=== PATIENT | male | born 1970 | race American Indian/Alaskan Native ===

== ENCOUNTER 2017-12-13 13:49 | Emergency (ER) | payer OTHER, MEDICAID ==
[2017-12-13 14:23] VITALS: BP 152/101
[2017-12-13] MEDS ORDERED: FIORICET PO ONE (18:35)
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
[2017-12-13 18:49] LABS: Basophils % (Auto) 0.2 % (0.0-1.8); Eosinophils # (Auto) 0.2 K/mm3 (0.0-0.4); Eosinophils % (Auto) 3.9 % (0.0-4.3); Hematocrit 38.4 % (35.5-45.6); Hemoglobin 12.1 gm/dl (11.8-15.2); Lymphocytes # (Auto) 1.8 K/mm3 (1.2-5.4); Lymphocytes % (Auto) 29.7 % (13.4-35.0); Mean Corpuscular HGB Conc 31 % (32-34); Mean Corpuscular Volume 81 fl (84-94); Monocytes # (Auto) 0.6 K/mm3 (0.0-0.8); Monocytes % (Auto) 9.1 % (0.0-7.3); Platelet Count 171 K/mm3 (140-440); Red Blood Count 4.73 M/mm3 (3.65-5.03); Red Cell Distribution Width 16.8 % (13.2-15.2)
[2017-12-13 18:50] LABS: Mean Corpuscular Hemoglobin 26 pg (28-32)
[2017-12-13 19:07] LABS: Albumin 3.3 g/dL (3.9-5); Calcium 8.1 mg/dL (8.4-10.2)
--- NOTE | 2017-12-13 19:16 | Cat Scan Report ---
FINAL REPORT PROCEDURE: CT head without contrast. TECHNIQUE: Computerized tomography of the head was performed without contrast material. HISTORY: Headache. COMPARISON: No prior studies are available for comparison. FINDINGS: The ventricles are normal in size. The javier matter and white matter appear normal. There are no mass lesions. There is no intracranial hemorrhage. There are no signs of acute infarction. The calvarium appears intact. The mastoid air cells and visualized paranasal sinuses are clear. IMPRESSION: Normal study.
== END 2017-12-13 20:30 | disposition home or self-care (01) ==
LOC: ED 13:49
DX: F07.81 Postconcussional syndrome (principal); I11.0 Hypertensive heart disease with heart failure; E11.9 Type 2 diabetes mellitus without complications; Z79.82 Long term (current) use of aspirin
CPT/HCPCS: 36415; 70450; 80053; 85025; 99284

== ENCOUNTER 2018-02-05 16:12 | Inpatient (IN) | payer MEDICAID, OTHER ==
[2018-02-05] MEDS ORDERED: ASPIRIN PO ONE (16:46)
[2018-02-05 17:27] LABS: Basophils # (Auto) 0.1 K/mm3 (0.0-0.1); Basophils % (Auto) 1.3 % (0.0-1.8); Eosinophils # (Auto) 0.2 K/mm3 (0.0-0.4); Eosinophils % (Auto) 2.8 % (0.0-4.3); Hemoglobin 12.5 gm/dl (11.8-15.2); Lymphocytes # (Auto) 1.6 K/mm3 (1.2-5.4); Mean Corpuscular HGB Conc 31 % (32-34); Mean Corpuscular Hemoglobin 26 pg (28-32); Mean Corpuscular Volume 83 fl (84-94); Monocytes # (Auto) 0.5 K/mm3 (0.0-0.8); Monocytes % (Auto) 8.2 % (0.0-7.3); Platelet Count 192 K/mm3 (140-440); Red Cell Distribution Width 16.3 % (13.2-15.2)
[2018-02-05 17:47] LABS: Albumin 3.5 g/dL (3.9-5); Calcium 8.8 mg/dL (8.4-10.2)
[2018-02-05 18:03] LABS: Chol/HDL Ratio 2.62 %
--- NOTE | 2018-02-05 18:25 | XRay Report ---
FINAL REPORT EXAM: XR CHEST ROUTINE 2V HISTORY: Chest Pain TECHNIQUE: 2 view examination of the chest PRIORS: None FINDINGS: Limited examination due to prominent soft tissue attenuation. There is no visible pulmonary consolidation, pleural effusion, or pneumothorax. Cardiac silhouette size is normal without vascular congestion. No visible acute displaced fracture in the regional skeleton. IMPRESSION: No evidence of acute cardiopulmonary disease
[2018-02-05] MEDS ORDERED: MORPHINE IV ONE (18:35)
[2018-02-05] MEDS ORDERED: ZOFRAN IV ONE (18:35)
[2018-02-05] MEDS ORDERED: PLAVIX PO ONE (18:36)
--- NOTE | 2018-02-05 18:43 | Emergency Department Report ---
HPI - General Chief Complaint: Chest Pain Time Seen by Provider: 02/05/18 18:21 - HPI HPI: Room 2 The patient is a 47-year-old male comes in with a chief complaint of chest pain shortness of breath. He states his symptoms began "a couple of hours" ago with substernal chest pain described as sharp in nature. The patient states his pain is associated shortness of breath, nausea/vomiting and diaphoresis. The patient states his pain is been intermittent. The patient states she had a syncopal episode after feeling dizzy and states she was unconscious for approximately 10-15 minutes. The patient currently gets this chest pain score of 8.5/10. The patient states he believes he had a stress test approximately 2 years ago but cannot recall the left sciatic cardiac catheterization or its findings Location: Chest Duration: 1.5 weeks Quality: Sharp Severity: 8.5/10 Modifying factors: [see above] Context: [see above] Mode of transportation: [not driving] ED Past Medical Hx - Past Medical History Previous Medical History?: Yes Hx Hypertension: Yes Hx Heart Attack/AMI: Yes Hx Congestive Heart Failure: Yes Hx Diabetes: Yes Hx Headaches / Migraines: Yes Additional medical history: DM, HTN, Heartache 2016 - Surgical History Past Surgical History?: No Additional Surgical History: foot repair, right BKA - Family History Family history: no significant - Social History Smoking Status: Former Smoker (none for over 10 years) Substance Use Type: None (denies illicit drug use) - Medications Home Medications: Home Medications Medication Instructions Recorded Confirmed Last Taken Type Bumetanide [Bumex 1 mg tab] 1 mg PO BID 01/31/16 03/19/16 Unknown History Digoxin [Lanoxin] 125 mcg PO DAILY 01/31/16 03/19/16 Unknown History Glucophage 500 mg PO DAILY 01/31/16 03/19/16 Unknown History Lisinopril 20 mg PO DAILY 01/31/16 03/19/16 Unknown History Spironolactone 25 mg PO BID 01/31/16 03/19/16 Unknown History Aspirin EC [Aspirin Enteric Coated 81 mg PO QDAY #30 tablet. 02/04/16 Unknown Rx TAB] AtorvaSTATin [Lipitor] 40 mg PO QHS #30 tablet 02/04/16 03/19/16 Unknown Rx Carvedilol [Coreg] 25 mg PO BID #60 tablet 02/04/16 03/19/16 Unknown Rx Acetaminophen/Codeine [Tylenol 1 tab PO Q6H PRN #10 tab 12/13/17 Unknown Rx /Codeine # 3 tab] Butalb/Acetamin/Caff 50-325-40 1 tab PO Q8HR PRN #20 tablet 12/13/17 Unknown Rx [Fioricet] Ondansetron [Zofran TAB] 8 mg PO Q8HR PRN #24 tablet 12/13/17 Unknown Rx ED Review of Systems ROS: Stated complaint: CHEST PAIN Other details as noted in HPI Constitutional: diaphoresis Respiratory: shortness of breath Cardiovascular: chest pain Gastrointestinal: nausea, vomiting Physical Exam - Physical Exam Vital Signs: Vital Signs 02/05/18 16:42 Temperature 98.2 F Pulse Rate 78 Respiratory 18 Rate Blood Pressure 167/110 Physical Exam: GENERAL: The patient is well-developed well-nourished male lying on stretcher not appearing to be in acute distress. [] HEENT: Normocephalic. Atraumatic. Extraocular motions are intact. Patient has moist mucous membranes. NECK: Supple. Trachea midline CHEST/LUNGS: Clear to auscultation. There is no respiratory distress noted. HEART/CARDIOVASCULAR: Regular. There is no tachycardia. There is no gallop rub or murmur. ABDOMEN: Abdomen is soft, nontender. Patient has normal bowel sounds. There is no abdominal distention. SKIN: There is no rash. There is no edema. There is no diaphoresis. NEURO: The patient is awake, alert, and oriented. The patient is cooperative. The patient has normal speech MUSCULOSKELETAL: There is no evidence of acute injury. ED Course Vital Signs 02/05/18 16:42 Temperature 98.2 F Pulse Rate 78 Respiratory 18 Rate Blood Pressure 167/110 ED Medical Decision Making - Lab Data Result diagrams: 02/05/18 17:11 02/05/18 17:11 Laboratory Tests 02/05/18 02/05/18 02/05/18 16:45 17:11 17:11 WBC 5.8 RBC 4.80 Hgb 12.5 Hct 40.0 MCV 83 L MCH 26 L MCHC 31 L RDW 16.3 H Plt Count 192 Lymph % (Auto) 27.0 Sebastian % (Auto) 8.2 H Eos % (Auto) 2.8 Baso % (Auto) 1.3 Lymph # 1.6 Sebastian # 0.5 Eos # 0.2 Baso # 0.1 Seg Neutrophils % 60.7 Seg Neutrophils # 3.5 D-Dimer 258.93 H Sodium Potassium Chloride Carbon Dioxide Anion Gap BUN Creatinine Estimated GFR BUN/Creatinine Ratio Glucose POC Glucose 112 H Calcium Total Bilirubin AST ALT Alkaline Phosphatase Troponin T Total Protein Albumin Albumin/Globulin Ratio Triglycerides Cholesterol LDL Cholesterol Direct HDL Cholesterol Cholesterol/HDL Ratio 02/05/18 17:11 WBC RBC Hgb Hct MCV MCH MCHC RDW Plt Count Lymph % (Auto) Sebastian % (Auto) Eos % (Auto) Baso % (Auto) Lymph # Sebastian # Eos # Baso # Seg Neutrophils % Seg Neutrophils # D-Dimer Sodium 140 Potassium 4.9 Chloride 102.6 Carbon Dioxide 23 Anion Gap 19 BUN 27 H Creatinine 2.4 H Estimated GFR 35 BUN/Creatinine Ratio 11 Glucose 111 H POC Glucose Calcium 8.8 Total Bilirubin 0.40 AST 14 ALT 8 Alkaline Phosphatase 107 Troponin T 0.290 H* Total Protein 6.8 Albumin 3.5 L Albumin/Globulin Ratio 1.1 Triglycerides 102 Cholesterol 181 LDL Cholesterol Direct 109 HDL Cholesterol 69 H Cholesterol/HDL Ratio 2.62 - EKG Data -: EKG Interpreted by Me EKG shows normal: sinus rhythm Rate: normal - EKG Data When compared to previous EKG there are: no significant change Interpretation: nonspecific ST-T wave claudia (T-wave inversion in lead aVL) - Radiology Data Radiology results: report reviewed (chest x-ray, VQ scan), image reviewed ( chest x-ray, VQ scan) interpreted by me: Chest x-ray- no focal infiltrates, no pneumothorax [address] [address] Nuclear Medicine Report Signed Patient: JOSE M YUNG MR#: [id number] : 1970 Acct:[id number] Age/Sex: 47 / M ADM Date: 02/05/18 Loc: ED Attending Dr: Ordering Physician: CHELE SHUKLA MD Date of Service: 02/05/18 Procedure(s): NM lung scan perf/vent Accession Number(s): [id number] cc: CHELE SHUKLA MD FINAL REPORT PROCEDURE: Nuclear medicine ventilation and perfusion lung scan. TECHNIQUE: Ventilation imaging was done in the posterior projection using 15 millicuries of xenon 133 gas. Perfusion imaging was done in multiple projections using 5 millicuries of technetium 99 M maa. HISTORY: Chest pain, shortness of breath, prior history of deep venous thrombosis and pulmonary embolism. COMPARISON: Chest 02/05/2018. FINDINGS: There is symmetrical homogeneous ventilation bilaterally. There are no ventilation defects. There is no trapping of xenon gas during the washout phase of the study. The perfusion images are also symmetrical and homogeneous. The lung scan is normal and carries an extremely low probability of pulmonary embolism. IMPRESSION: Normal lung scan. Transcribed By: [facility] Dictated By: KIRT JIMÉNEZ MD Electronically Authenticated By: KIRT JIMÉNEZ MD Signed Date/Time: 02/05 DD/ 33 TD/TT: 02/05/182033 - Medical Decision Making Heart score = 4 History Slightly suspicious= 0 Moderately suspicious= +1 Highly suspicious= +2 EKG Normal= 0 Nonspecific repolarization disturbance= +[address] depression= +2 Risk factors None= 0 1-2= +1 =/>3 = +2 Initial troponin Normal = 0 1-3 times normal= +1 > 3 times normal equals +2 - Differential Diagnosis ACS, PE, pericarditis, GERD Critical care attestation.: If time is entered above; I have spent that time in minutes in the direct care of this critically ill patient, excluding procedure time. ED Disposition Clinical Impression: Chest pain, Syncope Disposition: OP ADMIT IP TO THIS HOSP Is pt being admited?: Yes Does the pt Need Aspirin: No (renal insufficiency. Will give Plavix) Condition: Fair Instructions: Chest Pain (ED), Syncope (ED) Referrals: PRIMARY CARE, [Primary Care Provider] - 3-5 Days Time of Disposition: 22:03 (hospitalist notified (Dr Christian))
[2018-02-05] MEDS ORDERED: NITRO-BID 2% TP ONE (19:12)
--- NOTE | 2018-02-05 20:40 | Nuclear Medicine Report ---
FINAL REPORT PROCEDURE: Nuclear medicine ventilation and perfusion lung scan. TECHNIQUE: Ventilation imaging was done in the posterior projection using 15 millicuries of xenon 133 gas. Perfusion imaging was done in multiple projections using 5 millicuries of technetium 99 M maa. HISTORY: Chest pain, shortness of breath, prior history of deep venous thrombosis and pulmonary embolism. COMPARISON: Chest 02/05/2018. FINDINGS: There is symmetrical homogeneous ventilation bilaterally. There are no ventilation defects. There is no trapping of xenon gas during the washout phase of the study. The perfusion images are also symmetrical and homogeneous. The lung scan is normal and carries an extremely low probability of pulmonary embolism. IMPRESSION: Normal lung scan.
--- NOTE | 2018-02-05 23:42 | History and Physical Report ---
History of Present Illness Date of examination: 02/05/18 Date of admission: 02/05/18 22:03 Chief complaint: Chief complaint: Left-sided chest pain for 1 day History of present illness: BRANDT: 47-year-old -Tongan male with history of CHF hypertension and type 2 diabetes comes in for chest pain which is left-sided for last 1 day. Intermittent in nature. Retrosternal and sharp and about 8 on scale of 1-10. No diaphoresis no palpitations or shortness of breath. Patient has exertional dyspnea. Patient has ejection fraction of 25%. Patient follows with [facility] but has been noncompliant with follow-ups. Follows with his primary care regular basis. No orthopnea. No recent travel. Past Medical History Previous Medical History?: Yes Hx Hypertension: Yes Hx Heart Attack/AMI: Yes Hx Congestive Heart Failure: Yes Hx Diabetes: Yes Hx Headaches / Migraines: Yes Additional medical history: DM, HTN, Heartache 2016 - Surgical History Past Surgical History?: No Additional Surgical History: foot repair, right BKA - Family History Family history: no significant - Social History Smoking Status: Former Smoker (none for over 10 years) Substance Use Type: None (denies illicit drug use) - Medications Home Medications: Home Medications Medication Instructions Recorded Confirmed Last Taken Type Bumetanide [Bumex 1 mg tab] 1 mg PO BID 01/31/16 03/19/16 Unknown History Digoxin [Lanoxin] 125 mcg PO DAILY 01/31/16 03/19/16 Unknown History Glucophage 500 mg PO DAILY 01/31/16 03/19/16 Unknown History Lisinopril 20 mg PO DAILY 01/31/16 03/19/16 Unknown History Spironolactone 25 mg PO BID 01/31/16 03/19/16 Unknown History Aspirin EC [Aspirin Enteric Coated 81 mg PO QDAY #30 tablet. 02/04/16 Unknown Rx TAB] AtorvaSTATin [Lipitor] 40 mg PO QHS #30 tablet 02/04/16 03/19/16 Unknown Rx Carvedilol [Coreg] 25 mg PO BID #60 tablet 02/04/16 03/19/16 Unknown Rx Acetaminophen/Codeine [Tylenol 1 tab PO Q6H PRN #10 tab 12/13/17 Unknown Rx /Codeine # 3 tab] Butalb/Acetamin/Caff 50-325-40 1 tab PO Q8HR PRN #20 tablet 12/13/17 Unknown Rx [Fioricet] Ondansetron [Zofran TAB] 8 mg PO Q8HR PRN #24 tablet 12/13/17 Unknown Rx Review of Systems ROS: Stated complaint: CHEST PAIN Other details as noted in HPI Constitutional: diaphoresis Respiratory: shortness of breath Cardiovascular: chest pain Gastrointestinal: nausea, vomiting 14 point review of systems done and otherwise negative. Medications and Allergies Allergies Allergy/AdvReac Type Severity Reaction Status Date / Time tramadol Allergy Itching Verified 12/13/17 14:21 Home Medications Medication Instructions Recorded Confirmed Last Taken Type Bumetanide [Bumex 1 mg tab] 1 mg PO BID 01/31/16 03/19/16 Unknown History Digoxin [Lanoxin] 125 mcg PO DAILY 01/31/16 03/19/16 Unknown History Glucophage 500 mg PO DAILY 01/31/16 03/19/16 Unknown History Lisinopril 20 mg PO DAILY 01/31/16 03/19/16 Unknown History Spironolactone 25 mg PO BID 01/31/16 03/19/16 Unknown History Aspirin EC [Aspirin Enteric Coated 81 mg PO QDAY #30 tablet. 02/04/16 Unknown Rx TAB] AtorvaSTATin [Lipitor] 40 mg PO QHS #30 tablet 02/04/16 03/19/16 Unknown Rx Carvedilol [Coreg] 25 mg PO BID #60 tablet 02/04/16 03/19/16 Unknown Rx Acetaminophen/Codeine [Tylenol 1 tab PO Q6H PRN #10 tab 12/13/17 Unknown Rx /Codeine # 3 tab] Butalb/Acetamin/Caff 50-325-40 1 tab PO Q8HR PRN #20 tablet 12/13/17 Unknown Rx [Fioricet] Ondansetron [Zofran TAB] 8 mg PO Q8HR PRN #24 tablet 12/13/17 Unknown Rx Exam - Physical Exam Narrative exam: Lying in bed comfortably - Constitutional Vitals: Temp Pulse Resp BP Pulse Ox 97.1 F L 74 14 148/101 97 02/05/18 20:12 02/05/18 23:10 02/05/18 23:10 02/05/18 23:10 02/05/18 23:10 General appearance: Present: no acute distress, well-nourished - EENT Eyes: Present: PERRL ENT: hearing intact, clear oral mucosa - Neck Neck: Present: supple, normal ROM - Respiratory Respiratory effort: normal Respiratory: bilateral: CTA - Cardiovascular Heart rate: 80 Rhythm: regular Heart Sounds: Present: S1 & S2. Absent: rub, click - Extremities Extremities: no ischemia, pulses intact, pulses symmetrical, No edema Peripheral Pulses: within normal limits - Abdominal General gastrointestinal: Present: soft, non-tender, non-distended, normal bowel sounds Male genitourinary: Present: normal - Rectal Rectal Exam: deferred - Integumentary Integumentary: Present: clear, warm, dry - Musculoskeletal Musculoskeletal: gait normal, strength equal bilaterally - Psychiatric Psychiatric: appropriate mood/affect, intact judgment & insight - Neurologic Neurologic: CNII-XII intact, moves all extremities - Allied Health Allied health notes reviewed: nursing, case management Results - Labs CBC & Chem 7: 02/05/18 17:11 02/05/18 17:11 Labs: Laboratory Last Values WBC 5.8 K/mm3 (4.5-11.0) 02/05/18 17:11 RBC 4.80 M/mm3 (3.65-5.03) 02/05/18 17:11 Hgb 12.5 gm/dl (11.8-15.2) 02/05/18 17:11 Hct 40.0 % (35.5-45.6) 02/05/18 17:11 MCV 83 fl (84-94) L 02/05/18 17:11 MCH 26 pg (28-32) L 02/05/18 17:11 MCHC 31 % (32-34) L 02/05/18 17:11 RDW 16.3 % (13.2-15.2) H 02/05/18 17:11 Plt Count 192 K/mm3 (140-440) 02/05/18 17:11 Lymph % (Auto) 27.0 % (13.4-35.0) 02/05/18 17:11 [place] % (Auto) 8.2 % (0.0-7.3) H 02/05/18 17:11 Eos % (Auto) 2.8 % (0.0-4.3) 02/05/18 17:11 Baso % (Auto) 1.3 % (0.0-1.8) 02/05/18 17:11 Lymph # 1.6 K/mm3 (1.2-5.4) 02/05/18 17:11 [place] # 0.5 K/mm3 (0.0-0.8) 02/05/18 17:11 Eos # 0.2 K/mm3 (0.0-0.4) 02/05/18 17:11 Baso # 0.1 K/mm3 (0.0-0.1) 02/05/18 17:11 Seg Neutrophils % 60.7 % (40.0-70.0) 02/05/18 17:11 Seg Neutrophils # 3.5 K/mm3 (1.8-7.7) 02/05/18 17:11 D-Dimer 258.93 ng/mlDDU (0-234) H 02/05/18 17:11 Sodium 140 mmol/L (137-145) 02/05/18 17:11 Potassium 4.9 mmol/L (3.6-5.0) 02/05/18 17:11 Chloride 102.6 mmol/L (98-107) 02/05/18 17:11 Carbon Dioxide 23 mmol/L (22-30) 02/05/18 17:11 Anion Gap 19 mmol/L 02/05/18 17:11 BUN 27 mg/dL (9-20) H 02/05/18 17:11 Creatinine 2.4 mg/dL (0.8-1.5) H 02/05/18 17:11 Estimated GFR 35 ml/min 02/05/18 17:11 BUN/Creatinine Ratio 11 % 02/05/18 17:11 Glucose 111 mg/dL (75-100) H 02/05/18 17:11 POC Glucose 112 (70-105) H 02/05/18 16:45 Calcium 8.8 mg/dL (8.4-10.2) 02/05/18 17:11 Total Bilirubin 0.40 mg/dL (0.1-1.2) 02/05/18 17:11 AST 14 units/L (5-40) 02/05/18 17:11 ALT 8 units/L (7-56) 02/05/18 17:11 Alkaline Phosphatase 107 units/L (35-129) 02/05/18 17:11 Troponin T 0.290 ng/mL (0.00-0.029) H* 02/05/18 17:11 Total Protein 6.8 g/dL (6.3-8.2) 02/05/18 17:11 Albumin 3.5 g/dL (3.9-5) L 02/05/18 17:11 Albumin/Globulin Ratio 1.1 % 02/05/18 17:11 Triglycerides 102 mg/dL (2-149) 02/05/18 17:11 Cholesterol 181 mg/dL (50-199) 02/05/18 17:11 LDL Cholesterol Direct 109 mg/dL (50-130) 02/05/18 17:11 HDL Cholesterol 69 mg/dL (40-59) H 02/05/18 17:11 Cholesterol/HDL Ratio 2.62 % 02/05/18 17:11 Digoxin 0.3 ng/mL (0.9-2.0) L 02/05/18 18:54 Short CBC 02/05/18 Range/Units 17:11 WBC 5.8 (4.5-11.0) K/mm3 Hgb 12.5 (11.8-15.2) gm/dl Hct 40.0 (35.5-45.6) % Plt Count 192 (140-440) K/mm3 BMP 02/05/18 17:11 Sodium 140 Potassium 4.9 Chloride 102.6 Carbon Dioxide 23 BUN 27 H Creatinine 2.4 H Glucose 111 H Calcium 8.8 Cardiac Enzymes 02/05/18 Range/Units 17:11 Troponin T 0.290 H* (0.00-0.029) ng/mL Liver Function 02/05/18 Range/Units 17:11 Total Bilirubin 0.40 (0.1-1.2) mg/dL AST 14 (5-40) units/L ALT 8 (7-56) units/L Alkaline Phosphatase 107 (35-129) units/L Albumin 3.5 L (3.9-5) g/dL - Imaging and Cardiology EKG: report reviewed (sinus rhythm 83/m LVH criteria present T-wave inversions in aVR and aVL) Assessment and Plan Advance Directives: Yes (full code) VTE prophylaxis?: Chemical Plan of care discussed with patient/family: Yes - Patient Problems (1) Chest pain Current Visit: Yes Status: Acute Qualifiers: Chest pain type: unspecified Qualified Code(s): R07.9 - Chest pain, unspecified Plan to address problem: Chest pain rule out IA Serial cardiac enzymes Lexiscan the morning Cardiology consult (2) NEGAR (acute kidney injury) Current Visit: Yes Status: Acute Plan to address problem: NEGAR on CKD Nephrology consult requested Because of the CHF no IV fluids were initiated (3) CHF (congestive heart failure) Current Visit: Yes Status: Chronic Qualifiers: Heart failure type: combined systolic and diastolic Plan to address problem: Continue Bumex 1 mg twice a day (4) T2DM (type 2 diabetes mellitus) Current Visit: Yes Status: Chronic Qualifiers: Diabetes mellitus terminal worker insulin use: without terminal worker use Chronic kidney disease stage: stage 3 (moderate) Plan to address problem: Continue oral hypoglycemics hold Glucophage because of her elevated creatinine (5) Hypertension Current Visit: Yes Status: Chronic Qualifiers: Hypertension type: essential hypertension Qualified Code(s): I10 - Essential (primary) hypertension Plan to address problem: We will hold lisinopril because of elevated creatinine and add hydralazine 25 every 8 hours. Continue Coreg (6) Hyperlipidemia Current Visit: Yes Status: Chronic Qualifiers: Hyperlipidemia type: mixed hyperlipidemia Qualified Code(s): E78.2 - Mixed hyperlipidemia Plan to address problem: continue statins (7) DVT prophylaxis Current Visit: Yes Status: Acute Plan to address problem: Patient initiated on heparin 5000 every 12
[2018-02-06] MEDS ORDERED: ZOFRAN ODT PO PRN (06:43)
[2018-02-06] MEDS ORDERED: FIORICET PO PRN (06:43)
[2018-02-06] MEDS ORDERED: ZOFRAN IV PRN (06:44)
[2018-02-06] MEDS ORDERED: TYLENOL PO PRN (06:44)
[2018-02-06] MEDS ORDERED: MORPHINE IV PRN (06:44)
[2018-02-06] MEDS ORDERED: D50W (25GM) Syringe IV PRN (06:44)
[2018-02-06] MEDS ORDERED: SODIUM CHLORIDE FLUSH SYRINGE 10 ML IV PRN (06:44)
[2018-02-06 09:14] LABS: Creatine Kinase MB 10.3 ng/mL (0.0-4.0)
[2018-02-06] MEDS: HumaLOG SUB-Q SCH ×4 (09:49→23:07)
[2018-02-06] MEDS: BUMEX PO SCH ×2 (10:31→21:41)
[2018-02-06] MEDS: ALDACTONE PO SCH ×2 (10:31→21:41)
[2018-02-06] MEDS: PEPCID PO SCH ×2 (10:31→21:41)
[2018-02-06] MEDS: SODIUM CHLORIDE FLUSH SYRINGE 10 ML IV SCH ×2 (10:32→21:43)
[2018-02-06] MEDS: COREG PO SCH ×2 (10:32→21:42)
[2018-02-06] MEDS: HALFPRIN EC PO SCH (10:32)
--- NOTE | 2018-02-06 11:26 | Progress Note ---
Assessment and Plan Assessment and plan: --Non-ST elevation OH; Serial cardiac enzymes, cardiology evaluation, possible stress test Continue current cardiac medications --Nonischemic cardiomyopathy; ejection fraction 30-35% in the past however most recent done one and half years ago was 40-45% continue current anti-failure medications, Follow echocardiogram and ejection fraction --Elevated D dimers; VQ scan negative for PE Continue supportive care --Acute on chronic kidney injury; Gentle hydration, closely monitor his renal function, avoid nephrotoxins Nephrology evaluation noted and appreciated --Type 2 diabetes mellitus; Accu-Chek sliding scale coverage and ADA diet Insulin as needed, A1c 8.1, diabetic education if needed --Mild hyperkalemia; closely monitor potassium levels Nephrology following --Mild protein calorie malnutrition; hypoalbuminemia[albumin 3.5] Nutrition supplements and supportive care --DVT prophylaxis; Lovenox History Interval history: Patient seen and examined medical records reviewed Admitted with chest pain, elevated cardiac enzymes VQ scan negative for PE Stress test recommended, rescheduled for tomorrow in view of recent V/Q study Patient feels better no new complaints Vital signs reviewed Hospitalist Physical - Constitutional Vitals: Temp Pulse Resp BP Pulse Ox 97.3 F L 90 18 125/71 95 02/06/18 08:08 02/06/18 10:31 02/06/18 08:08 02/06/18 08:08 02/06/18 08:08 General appearance: Present: no acute distress, well-nourished - EENT Eyes: Present: PERRL, EOM intact - Neck Neck: Present: supple, normal ROM - Respiratory Respiratory effort: normal Respiratory: bilateral: diminished, negative: rales, rhonchi, wheezing - Cardiovascular Rhythm: regular Heart Sounds: Present: S1 & S2 - Extremities Extremities: no ischemia, No edema - Abdominal General gastrointestinal: soft, non-tender, non-distended, normal bowel sounds - Integumentary Integumentary: Present: clear, warm - Psychiatric Psychiatric: appropriate mood/affect, cooperative - Neurologic Neurologic: CNII-XII intact, moves all extremities Results - Labs CBC & Chem 7: 02/05/18 17:11 02/06/18 15:32 Labs: Laboratory Last Values WBC 5.8 K/mm3 (4.5-11.0) 02/05/18 17:11 RBC 4.80 M/mm3 (3.65-5.03) 02/05/18 17:11 Hgb 12.5 gm/dl (11.8-15.2) 02/05/18 17:11 Hct 40.0 % (35.5-45.6) 02/05/18 17:11 MCV 83 fl (84-94) L 02/05/18 17:11 MCH 26 pg (28-32) L 02/05/18 17:11 MCHC 31 % (32-34) L 02/05/18 17:11 RDW 16.3 % (13.2-15.2) H 02/05/18 17:11 Plt Count 192 K/mm3 (140-440) 02/05/18 17:11 Lymph % (Auto) 27.0 % (13.4-35.0) 02/05/18 17:11 [place] % (Auto) 8.2 % (0.0-7.3) H 02/05/18 17:11 Eos % (Auto) 2.8 % (0.0-4.3) 02/05/18 17:11 Baso % (Auto) 1.3 % (0.0-1.8) 02/05/18 17:11 Lymph # 1.6 K/mm3 (1.2-5.4) 02/05/18 17:11 [place] # 0.5 K/mm3 (0.0-0.8) 02/05/18 17:11 Eos # 0.2 K/mm3 (0.0-0.4) 02/05/18 17:11 Baso # 0.1 K/mm3 (0.0-0.1) 02/05/18 17:11 Seg Neutrophils % 60.7 % (40.0-70.0) 02/05/18 17:11 Seg Neutrophils # 3.5 K/mm3 (1.8-7.7) 02/05/18 17:11 D-Dimer 258.93 ng/mlDDU (0-234) H 02/05/18 17:11 Sodium 140 mmol/L (137-145) 02/05/18 17:11 Potassium 4.9 mmol/L (3.6-5.0) 02/05/18 17:11 Chloride 102.6 mmol/L (98-107) 02/05/18 17:11 Carbon Dioxide 23 mmol/L (22-30) 02/05/18 17:11 Anion Gap 19 mmol/L 02/05/18 17:11 BUN 27 mg/dL (9-20) H 02/05/18 17:11 Creatinine 2.4 mg/dL (0.8-1.5) H 02/05/18 17:11 Estimated GFR 35 ml/min 02/05/18 17:11 BUN/Creatinine Ratio 11 % 02/05/18 17:11 Glucose 111 mg/dL (75-100) H 02/05/18 17:11 POC Glucose 137 (70-105) H 02/06/18 06:54 Hemoglobin A1c 8.1 % (4-6) H 02/06/18 06:48 Calcium 8.8 mg/dL (8.4-10.2) 02/05/18 17:11 Total Bilirubin 0.40 mg/dL (0.1-1.2) 02/05/18 17:11 AST 14 units/L (5-40) 02/05/18 17:11 ALT 8 units/L (7-56) 02/05/18 17:11 Alkaline Phosphatase 107 units/L (35-129) 02/05/18 17:11 Total Creatine Kinase 289 units/L (55-170) H 02/06/18 07:58 CK-MB (CK-2) 10.3 ng/mL (0.0-4.0) H 02/06/18 07:58 CK-MB (CK-2) Rel Index 3.5 (0-4) 02/06/18 07:58 Troponin T 0.315 ng/mL (0.00-0.029) H* 02/06/18 07:58 Total Protein 6.8 g/dL (6.3-8.2) 02/05/18 17:11 Albumin 3.5 g/dL (3.9-5) L 02/05/18 17:11 Albumin/Globulin Ratio 1.1 % 02/05/18 17:11 Triglycerides 102 mg/dL (2-149) 02/05/18 17:11 Cholesterol 181 mg/dL (50-199) 02/05/18 17:11 LDL Cholesterol Direct 109 mg/dL (50-130) 02/05/18 17:11 HDL Cholesterol 69 mg/dL (40-59) H 02/05/18 17:11 Cholesterol/HDL Ratio 2.62 % 02/05/18 17:11 Digoxin 0.3 ng/mL (0.9-2.0) L 02/05/18 18:54
--- NOTE | 2018-02-06 12:30 | Consultation ---
History of Present Illness - Reason for Consult Consult date: 02/06/18 acute renal failure, chronic renal failure - History of Present Illness The patient is a 47 YO AAM with medical history significant for Type 2 DM, HTN, Morbid Obesity, CKD stage 3, CAD and CHF with EF of 25% who came to the hospital with chest pain and SOB of one day duration. Chest pain was left sided , retrosternal, sharp, 8 on scale of 1-10 and not radiating. He also reports associated Orthopnea and PND. He had about 2 episodes of vomiting yesterday. Patient denies any cough, dizziness, syncope, weakness, muscle cramps, dysuria or hematuria. His creatinine was 2.4 yesterday. About 2 months ago his creatinine was 2.1. Currently he is not followed by any [employer]. Past History Past Medical History: diabetes, heart failure, hypertension, renal failure Medications and Allergies Allergies Allergy/AdvReac Type Severity Reaction Status Date / Time tramadol Allergy Itching Verified 12/13/17 14:21 Home Medications Medication Instructions Recorded Confirmed Last Taken Type Bumetanide [Bumex 1 mg tab] 1 mg PO BID 01/31/16 03/19/16 Unknown History Digoxin [Lanoxin] 125 mcg PO DAILY 01/31/16 03/19/16 Unknown History Glucophage 500 mg PO DAILY 01/31/16 03/19/16 Unknown History Lisinopril 20 mg PO DAILY 01/31/16 03/19/16 Unknown History Spironolactone 25 mg PO BID 01/31/16 03/19/16 Unknown History Aspirin EC [Aspirin Enteric Coated 81 mg PO QDAY #30 tablet. 02/04/16 Unknown Rx TAB] AtorvaSTATin [Lipitor] 40 mg PO QHS #30 tablet 02/04/16 03/19/16 Unknown Rx Carvedilol [Coreg] 25 mg PO BID #60 tablet 02/04/16 03/19/16 Unknown Rx Acetaminophen/Codeine [Tylenol 1 tab PO Q6H PRN #10 tab 12/13/17 Unknown Rx /Codeine # 3 tab] Butalb/Acetamin/Caff 50-325-40 1 tab PO Q8HR PRN #20 tablet 12/13/17 Unknown Rx [Fioricet] Ondansetron [Zofran TAB] 8 mg PO Q8HR PRN #24 tablet 12/13/17 Unknown Rx Active Meds: Active Medications Acetaminophen (Tylenol) 650 mg PO Q4H PRN PRN Reason: Pain MILD(1-3)/Fever >100.5/ZHENG Acetaminophen/Butalbital/Caffeine (Fioricet) 1 tab PO Q8H PRN PRN Reason: Headache Aspirin (Halfprin Ec) 81 mg PO QDAY [facility] Last Admin: 02/06/18 10:32 Dose: 81 mg Atorvastatin Calcium (Lipitor) 40 mg PO QHS [facility] Bumetanide (Bumex) 1 mg PO BID [facility] Last Admin: 02/06/18 10:31 Dose: 1 mg Carvedilol (Coreg) 25 mg PO BID [facility] Last Admin: 02/06/18 10:32 Dose: 25 mg Dextrose (D50w (25gm) Syringe) 50 ml IV PRN PRN PRN Reason: Hypoglycemia Digoxin (Lanoxin) 0.125 mg PO DAILY@1700 [facility] Famotidine (Pepcid) 10 mg PO BID [facility] Last Admin: 02/06/18 10:31 Dose: 10 mg Insulin Human Lispro (Humalog) 0 unit SUB-Q ACHS [facility]; Protocol Last Admin: 02/06/18 09:49 Dose: Not Given Morphine Sulfate (Morphine) 2 mg IV Q4H PRN PRN Reason: Pain, Moderate (4-6) Ondansetron HCl (Zofran Odt) 8 mg PO Q8H PRN PRN Reason: Nausea Ondansetron HCl (Zofran) 4 mg IV Q8H PRN PRN Reason: Nausea And Vomiting Oxycodone/Acetaminophen (Percocet 5/325) 1 tab PO Q6H PRN PRN Reason: Pain, Moderate (4-6) Sodium Chloride (Sodium Chloride Flush Syringe 10 Ml) 10 ml IV BID [facility] Last Admin: 02/06/18 10:32 Dose: 10 ml Sodium Chloride (Sodium Chloride Flush Syringe 10 Ml) 10 ml IV PRN PRN PRN Reason: LINE FLUSH Spironolactone (Aldactone) 25 mg PO BID [facility] Last Admin: 02/06/18 10:31 Dose: 25 mg Review of Systems Constitutional: no weight loss, no weight gain, no fever, no chills, no anorexia , no weakness, no poor appetite Ears, nose, mouth and throat: no epistaxis Cardiovascular: chest pain, orthopnea, edema, shortness of breath, dyspnea on exertion, high blood pressure, leg edema, decreased exercise tolerance, no palpitations, no syncope, no lightheadedness Respiratory: shortness of breath, dyspnea on exertion, no cough Gastrointestinal: nausea, vomiting, no abdominal pain, no diarrhea, no melena Genitourinary Male: no dysuria, no hematuria Rectal: no bleeding Integumentary: no rash Neurological: no paralysis, no syncope, no convulsions, no change in speech, no change in mentation, no confusion, no memory loss Endocrine: no weight change Exam - Vital Signs Vital signs: Vital Signs Temp Pulse Resp BP 98.2 F 78 18 167/110 02/05/18 16:42 02/05/18 16:42 02/05/18 16:42 02/05/18 16:42 - General Appearance General appearance: well-developed, well-nourished, appears stated age, obese, other (no distress) EENT: ATNC, PERRL, mucous membranes moist, hearing intact, vision intact Neck: Present: neck supple, trachea midline Respiratory: Clear to Ascultation Heart: regular, S1S2, no murmurs Gastrointestinal: Present: normoactive bowel sounds, obese. Absent: tenderness , distended Integumentary: warm and dry Neurologic: no focal deficit, no asterixis, alert and oriented x3 Musculoskeletal: Present: other (right BKA, trace pedal edema noted) Psychiatric: mood/affect appropriate, cooperative Results - Lab Results 02/05/18 17:11 02/05/18 17:11 Most recent lab results Calcium 8.8 mg/dL (8.4-10.2) 02/05/18 17:11 - Image Kidney/bladder ultrasound: report reviewed Assessment and Plan 1. Acute kidney injury: NEGAR superimposed on CKD stage 3. Additional possibility is worsening CKD. Urine studies are pending. Monitor renal function. 2. CKD: Likely diabetic nephropathy. 3. Chest pain. 4. DM type 2. 5. HTN.
--- NOTE | 2018-02-06 13:26 | Ultrasound Report ---
RENAL ULTRASOUND: 02/06/18 12:31:00 CLINICAL: Acute renal failure. FINDINGS: High resolution ultrasound demonstrated normal renal collecting systems. Moderate increased echogenicity of the kidneys. No renal mass, cyst or calculus. The right kidney measures 11.4 x 5.8 x 5.0-cm. The renal parenchyma measures 1.6-cm in thickness. The left kidney measures 11.5 x 6.1 x 4.9-cm. The renal parenchyma measures 1.8-cm in thickness. The urinary bladder is distended with normal wall thickness. No bladder mass or calculus. IMPRESSION: 1. Urinary bladder distention but no hydronephrosis. 2. Bilateral medical renal disease with normal size kidneys and moderate increased renal echogenicity.
[2018-02-06 16:14] LABS: Calcium 8.4 mg/dL (8.4-10.2)
[2018-02-06] MEDS: LANOXIN PO SCH (16:42)
[2018-02-06] MEDS: PERCOCET 5/325 PO PRN (19:53)
[2018-02-07 07:11] LABS: Basophils # (Auto) 0.1 K/mm3 (0.0-0.1); Basophils % (Auto) 1.1 % (0.0-1.8); Eosinophils # (Auto) 0.2 K/mm3 (0.0-0.4); Eosinophils % (Auto) 4.3 % (0.0-4.3); Hematocrit 36.3 % (35.5-45.6); Hemoglobin 11.5 gm/dl (11.8-15.2); Lymphocytes # (Auto) 1.7 K/mm3 (1.2-5.4); Lymphocytes % (Auto) 35.2 % (13.4-35.0); Mean Corpuscular HGB Conc 32 % (32-34); Mean Corpuscular Hemoglobin 26 pg (28-32); Mean Corpuscular Volume 83 fl (84-94); Monocytes # (Auto) 0.5 K/mm3 (0.0-0.8); Monocytes % (Auto) 10.1 % (0.0-7.3); Platelet Count 163 K/mm3 (140-440); Red Blood Count 4.39 M/mm3 (3.65-5.03); Red Cell Distribution Width 15.9 % (13.2-15.2)
[2018-02-07 07:27] LABS: Albumin 3.1 g/dL (3.9-5); Calcium 8.5 mg/dL (8.4-10.2)
[2018-02-07] MEDS: HumaLOG SUB-Q SCH ×3 (07:38→17:29)
[2018-02-07] MEDS ORDERED: LEXISCAN IV ONE ×2 (07:57→08:09)
--- NOTE | 2018-02-07 10:48 | Consultation ---
History of Present Illness Consult date: 02/07/18 History of present illness: Impression Seen and eval in stress lab Atypical chest pain Prior history of CMP CKD Cr 2.5 HTN Diabetes Plan Echo and Nuclear stress MPI complete Nuclear stress perfusion normal, no ischemia. EF has signficantly improved to approx 50%, previous was 29%. Would cont present management for Non-ischemic CMP Past History Past Medical History: diabetes, heart failure, hypertension, renal failure Medications and Allergies Allergies Allergy/AdvReac Type Severity Reaction Status Date / Time tramadol Allergy Itching Verified 12/13/17 14:21 Home Medications Medication Instructions Recorded Confirmed Last Taken Type Bumetanide [Bumex 1 mg tab] 1 mg PO BID 01/31/16 03/19/16 Unknown History Digoxin [Lanoxin] 125 mcg PO DAILY 01/31/16 03/19/16 Unknown History Glucophage 500 mg PO DAILY 01/31/16 03/19/16 Unknown History Lisinopril 20 mg PO DAILY 01/31/16 03/19/16 Unknown History Spironolactone 25 mg PO BID 01/31/16 03/19/16 Unknown History Aspirin EC [Aspirin Enteric Coated 81 mg PO QDAY #30 tablet. 02/04/16 Unknown Rx TAB] AtorvaSTATin [Lipitor] 40 mg PO QHS #30 tablet 02/04/16 03/19/16 Unknown Rx Carvedilol [Coreg] 25 mg PO BID #60 tablet 02/04/16 03/19/16 Unknown Rx Acetaminophen/Codeine [Tylenol 1 tab PO Q6H PRN #10 tab 12/13/17 Unknown Rx /Codeine # 3 tab] Butalb/Acetamin/Caff 50-325-40 1 tab PO Q8HR PRN #20 tablet 12/13/17 Unknown Rx [Fioricet] Ondansetron [Zofran TAB] 8 mg PO Q8HR PRN #24 tablet 12/13/17 Unknown Rx Active Meds: Active Medications Acetaminophen (Tylenol) 650 mg PO Q4H PRN PRN Reason: Pain MILD(1-3)/Fever >100.5/ZHENG Acetaminophen/Butalbital/Caffeine (Fioricet) 1 tab PO Q8H PRN PRN Reason: Headache Aspirin (Halfprin Ec) 81 mg PO QDAY DONALD Last Admin: 02/06/18 10:32 Dose: 81 mg Atorvastatin Calcium (Lipitor) 40 mg PO QHS [facility] Last Admin: 02/06/18 21:41 Dose: 40 mg Bumetanide (Bumex) 1 mg PO BID [facility] Last Admin: 02/06/18 21:41 Dose: 1 mg Carvedilol (Coreg) 25 mg PO BID [facility] Last Admin: 02/06/18 21:42 Dose: 25 mg Dextrose (D50w (25gm) Syringe) 50 ml IV PRN PRN PRN Reason: Hypoglycemia Digoxin (Lanoxin) 0.125 mg PO DAILY@1700 [facility] Last Admin: 02/06/18 16:42 Dose: 0.125 mg Famotidine (Pepcid) 10 mg PO BID [facility] Last Admin: 02/06/18 21:41 Dose: 10 mg Insulin Human Lispro (Humalog) 0 unit SUB-Q ACHS [facility]; Protocol Last Admin: 02/07/18 07:38 Dose: Not Given Morphine Sulfate (Morphine) 2 mg IV Q4H PRN PRN Reason: Pain, Moderate (4-6) Ondansetron HCl (Zofran Odt) 8 mg PO Q8H PRN PRN Reason: Nausea Ondansetron HCl (Zofran) 4 mg IV Q8H PRN PRN Reason: Nausea And Vomiting Oxycodone/Acetaminophen (Percocet 5/325) 1 tab PO Q6H PRN PRN Reason: Pain, Moderate (4-6) Last Admin: 02/06/18 19:53 Dose: 1 tab Sodium Chloride (Sodium Chloride Flush Syringe 10 Ml) 10 ml IV BID [facility] Last Admin: 02/06/18 21:43 Dose: 10 ml Sodium Chloride (Sodium Chloride Flush Syringe 10 Ml) 10 ml IV PRN PRN PRN Reason: LINE FLUSH Spironolactone (Aldactone) 25 mg PO BID [facility] Last Admin: 02/06/18 21:41 Dose: 25 mg Physical Examination Vital Signs Temp Pulse Resp BP 98.2 F 78 18 167/110 02/05/18 16:42 02/05/18 16:42 02/05/18 16:42 02/05/18 16:42 General appearance: no acute distress HEENT: Positive: PERRL, EOMI Neck: Positive: neck supple Cardiac: Positive: Reg Rate and Rhythm, S1/S2 Lungs: Positive: Normal Exam Abdomen: Positive: Unremarkable, Soft Extremities: Present: normal Results 02/07/18 05:53 02/07/18 05:53 Cardiac Enzymes 02/06/18 02/07/18 Range/Units 15:32 05:53 AST 12 (5-40) units/L CK-MB (CK-2) 12.0 H (0.0-4.0) ng/mL CBC 02/07/18 Range/Units 05:53 WBC 4.8 (4.5-11.0) K/mm3 RBC 4.39 (3.65-5.03) M/mm3 Hgb 11.5 L (11.8-15.2) gm/dl Hct 36.3 (35.5-45.6) % Plt Count 163 (140-440) K/mm3 Lymph # 1.7 (1.2-5.4) K/mm3 [place] # 0.5 (0.0-0.8) K/mm3 Eos # 0.2 (0.0-0.4) K/mm3 Baso # 0.1 (0.0-0.1) K/mm3 Comprehensive Metabolic Panel 02/06/18 02/07/18 Range/Units 15:32 05:53 Sodium 139 138 (137-145) mmol/L Potassium 5.4 H 4.7 (3.6-5.0) mmol/L Chloride 103.6 103.4 (98-107) mmol/L Carbon Dioxide 21 L 23 (22-30) mmol/L BUN 28 H 31 H (9-20) mg/dL Creatinine 2.3 H 2.5 H (0.8-1.5) mg/dL Glucose 128 H 151 H (75-100) mg/dL Calcium 8.4 8.5 (8.4-10.2) mg/dL AST 12 (5-40) units/L ALT 7 (7-56) units/L Alkaline Phosphatase 99 (35-129) units/L Total Protein 6.2 L (6.3-8.2) g/dL Albumin 3.1 L (3.9-5) g/dL
[2018-02-07] MEDS: ALDACTONE PO SCH (10:49)
[2018-02-07] MEDS: BUMEX PO SCH (10:49)
[2018-02-07] MEDS: COREG PO SCH (10:49)
[2018-02-07] MEDS: PEPCID PO SCH (10:49)
[2018-02-07] MEDS: SODIUM CHLORIDE FLUSH SYRINGE 10 ML IV SCH (10:49)
[2018-02-07] MEDS: HALFPRIN EC PO SCH (10:49)
--- NOTE | 2018-02-07 12:03 | Progress Note ---
Assessment and Plan 1. Chronic kidney disease: CKD stage 3 approaching stage 4. Likely diabetic nephropathy. Urine studies are pending. Monitor renal function. 2. Hyperkalemia: Improved. 3. Chest pain. 4. DM type 2. 5. HTN. Compliance encouraged. Subjective Date of service: 02/07/18 Interval history: Patient is feeling better. Objective - Vital Signs Vital signs: Vital Signs - 12hr 02/07/18 02/07/18 02/07/18 00:28 03:45 07:46 Temperature 97.4 F L 97.6 F Pulse Rate 63 63 70 Respiratory 20 20 Rate Blood Pressure 140/75 144/86 O2 Sat by Pulse 97 92 Oximetry 02/07/18 02/07/18 02/07/18 08:22 09:07 09:08 Temperature Pulse Rate 59 L 86 82 Respiratory Rate Blood Pressure 188/112 158/94 180/115 O2 Sat by Pulse Oximetry 02/07/18 02/07/18 02/07/18 09:09 09:10 09:11 Temperature Pulse Rate 79 79 79 Respiratory Rate Blood Pressure 184/111 185/118 155/101 O2 Sat by Pulse Oximetry - General Appearance General appearance: well-developed, well-nourished, appears stated age, obese, other (no distress) EENT: ATNC, PERRL, mucous membranes moist, hearing intact, vision intact Neck: supple Respiratory: Present: Clear to Ascultation Cardiology: regular, S1S2, no murmurs Gastrointestinal: normoactive bowel sounds, no tenderness, no distended, obese Integumentary: chronic venous stasis Neurologic: no focal deficit, no asterixis, alert and oriented x3 Musculoskeletal: other (right BKA, left LE edematous) Psychiatric: mood/affect appropriate, cooperative - Lab 02/07/18 05:53 02/07/18 05:53 Most recent lab results Calcium 8.5 mg/dL (8.4-10.2) 02/07/18 05:53 Phosphorus 5.50 mg/dL (2.5-4.5) H 02/07/18 05:53
--- NOTE | 2018-02-07 12:37 | Progress Note ---
Assessment and Plan Assessment and plan: --Acute on chronic kidney injury 3; probably secondary to diabetic nephropathy worsening renal function,Gentle hydration, closely monitor his renal function, avoid nephrotoxins, Nephrology following --Non-ST elevation [place]; ischemia ruled out Negative stress test, continue current cardiac medications --Nonischemic cardiomyopathy; ejection fraction 30-35% in the past however most recent done one and half years ago was 45-50% continue current anti-failure medications, Follow echocardiogram and ejection fraction --Elevated D dimers; VQ scan negative for PE Continue supportive care --Type 2 diabetes mellitus; Accu-Chek sliding scale coverage and ADA diet Insulin as needed, A1c 8.1, diabetic education if needed --Mild hyperkalemia; closely monitor potassium levels Nephrology following --Mild protein calorie malnutrition; hypoalbuminemia[albumin 3.5] Nutrition supplements and supportive care --DVT prophylaxis; Lovenox History Interval history: Patient seen and examined medical reviewed Had stress test today which was negative for reversible ischemia Patient feels better no new complaints Worsening renal function Alert awake oriented 3 not in acute distress Hospitalist Physical - Constitutional Vitals: Temp Pulse Resp BP Pulse Ox 97.6 F 79 20 155/101 92 02/07/18 03:45 02/07/18 09:11 02/07/18 03:45 02/07/18 09:11 02/07/18 03:45 General appearance: Present: no acute distress, well-nourished, obese (morbidly obese) - EENT Eyes: Present: PERRL, EOM intact - Neck Neck: Present: supple, normal ROM - Respiratory Respiratory effort: normal Respiratory: negative: rales, rhonchi, wheezing - Cardiovascular Rhythm: regular Heart Sounds: Present: S1 & S2 - Extremities Extremities: abnormal (status post AKA) Extremity abnormal: edema - Abdominal General gastrointestinal: soft, non-tender, non-distended, normal bowel sounds - Integumentary Integumentary: Present: clear, warm - Psychiatric Psychiatric: appropriate mood/affect, cooperative - Neurologic Neurologic: CNII-XII intact, moves all extremities Results - Labs CBC & Chem 7: 02/07/18 05:53 02/07/18 05:53 Labs: Laboratory Last Values WBC 4.8 K/mm3 (4.5-11.0) 02/07/18 05:53 RBC 4.39 M/mm3 (3.65-5.03) 02/07/18 05:53 Hgb 11.5 gm/dl (11.8-15.2) L 02/07/18 05:53 Hct 36.3 % (35.5-45.6) 02/07/18 05:53 MCV 83 fl (84-94) L 02/07/18 05:53 MCH 26 pg (28-32) L 02/07/18 05:53 MCHC 32 % (32-34) 02/07/18 05:53 RDW 15.9 % (13.2-15.2) H 02/07/18 05:53 Plt Count 163 K/mm3 (140-440) 02/07/18 05:53 Lymph % (Auto) 35.2 % (13.4-35.0) H 02/07/18 05:53 [place] % (Auto) 10.1 % (0.0-7.3) H 02/07/18 05:53 Eos % (Auto) 4.3 % (0.0-4.3) 02/07/18 05:53 Baso % (Auto) 1.1 % (0.0-1.8) 02/07/18 05:53 Lymph # 1.7 K/mm3 (1.2-5.4) 02/07/18 05:53 [place] # 0.5 K/mm3 (0.0-0.8) 02/07/18 05:53 Eos # 0.2 K/mm3 (0.0-0.4) 02/07/18 05:53 Baso # 0.1 K/mm3 (0.0-0.1) 02/07/18 05:53 Seg Neutrophils % 49.3 % (40.0-70.0) 02/07/18 05:53 Seg Neutrophils # 2.4 K/mm3 (1.8-7.7) 02/07/18 05:53 D-Dimer 258.93 ng/mlDDU (0-234) H 02/05/18 17:11 Sodium 138 mmol/L (137-145) 02/07/18 05:53 Potassium 4.7 mmol/L (3.6-5.0) 02/07/18 05:53 Chloride 103.4 mmol/L (98-107) 02/07/18 05:53 Carbon Dioxide 23 mmol/L (22-30) 02/07/18 05:53 Anion Gap 16 mmol/L 02/07/18 05:53 BUN 31 mg/dL (9-20) H 02/07/18 05:53 Creatinine 2.5 mg/dL (0.8-1.5) H 02/07/18 05:53 Estimated GFR 33 ml/min 02/07/18 05:53 BUN/Creatinine Ratio 12 % 02/07/18 05:53 Glucose 151 mg/dL (75-100) H 02/07/18 05:53 POC Glucose 145 (70-105) H 02/07/18 06:36 Hemoglobin A1c 8.1 % (4-6) H 02/06/18 06:48 Calcium 8.5 mg/dL (8.4-10.2) 02/07/18 05:53 Phosphorus 5.50 mg/dL (2.5-4.5) H 02/07/18 05:53 Total Bilirubin 0.20 mg/dL (0.1-1.2) 02/07/18 05:53 AST 12 units/L (5-40) 02/07/18 05:53 ALT 7 units/L (7-56) 02/07/18 05:53 Alkaline Phosphatase 99 units/L (35-129) 02/07/18 05:53 Total Creatine Kinase 310 units/L (55-170) H 02/06/18 15:32 CK-MB (CK-2) 12.0 ng/mL (0.0-4.0) H 02/06/18 15:32 CK-MB (CK-2) Rel Index 3.8 (0-4) 02/06/18 15:32 Troponin T 0.284 ng/mL (0.00-0.029) H* 02/06/18 15:32 Total Protein 6.2 g/dL (6.3-8.2) L 02/07/18 05:53 Albumin 3.1 g/dL (3.9-5) L 02/07/18 05:53 Albumin/Globulin Ratio 1.0 % 02/07/18 05:53 Triglycerides 102 mg/dL (2-149) 02/05/18 17:11 Cholesterol 181 mg/dL (50-199) 02/05/18 17:11 LDL Cholesterol Direct 109 mg/dL (50-130) 02/05/18 17:11 HDL Cholesterol 69 mg/dL (40-59) H 02/05/18 17:11 Cholesterol/HDL Ratio 2.62 % 02/05/18 17:11 PTH Intact 227.6 pg/mL (15-65) H 02/07/18 05:53 Digoxin 0.3 ng/mL (0.9-2.0) L 02/05/18 18:54
[2018-02-07] MEDS ORDERED: MILK OF MAGNESIA PO ONE (14:00)
[2018-02-07 17:10] LABS: Bilirubin,Urine NEG (Negative); Blood,Urine SM (Negative); Color,Urine Straw (Yellow); Hyaline Casts,Urine 3 /LPF; Urobilinogen,Urine < 2.0 mg/dL (<2.0)
[2018-02-07 17:15] LABS: Creatinine,Urine 50.5 mg/dL (0.1-20.0)
[2018-02-07 17:20] LABS: Creatinine,Urine 49.6 mg/dL (0.1-20.0); Protein/Creatinine Ratio,Urine 1.53
[2018-02-07] MEDS: LANOXIN PO SCH (17:29)
[2018-02-08] MEDS: PEPCID PO SCH ×3 (00:10→21:52)
[2018-02-08] MEDS: ALDACTONE PO SCH ×3 (00:11→21:52)
[2018-02-08] MEDS: COREG PO SCH ×3 (00:13→21:52)
[2018-02-08] MEDS: BUMEX PO SCH ×4 (00:14→21:53)
[2018-02-08] MEDS: HumaLOG SUB-Q SCH ×5 (00:14→21:53)
[2018-02-08] MEDS: SODIUM CHLORIDE FLUSH SYRINGE 10 ML IV SCH ×3 (00:15→21:55)
[2018-02-08 08:19] LABS: Calcium 8.7 mg/dL (8.4-10.2)
--- NOTE | 2018-02-08 08:19 | Progress Note ---
Assessment and Plan Atypical chest pain no ischemia on MPI this admission Prior history of NICMP now resolving, EF 50% by echo 12/2015: Cardiac cath at a [facility] reports normal coronaries, LVEF 25 %. CKD HTN Diabetes Chronic elevated troponin RLE BKA No further cardiac workup indicated. Conservative cardiac management. Subjective Date of service: 02/08/18 Interval history: Patient reports his chest pain has resolved. Objective Vital Signs Temp Pulse Resp BP Pulse Ox 02/08/18 08:00 98.3 F 67 16 182/115 97 02/08/18 00:13 72 171/103 02/08/18 00:11 72 171/103 02/07/18 22:00 16 02/07/18 21:32 100 02/07/18 20:10 97.9 F 76 18 192/91 99 02/07/18 17:29 71 02/07/18 16:57 97.9 F 67 18 140/81 98 02/07/18 09:11 79 155/101 02/07/18 09:10 79 185/118 02/07/18 09:09 79 184/111 02/07/18 09:08 82 180/115 02/07/18 09:07 86 158/94 02/07/18 08:22 59 L 188/112 - Physical Examination General: No Apparent Distress HEENT: Positive: PERRL Cardiac: Positive: Reg Rate and Rhythm
--- NOTE | 2018-02-08 10:07 | Progress Note ---
Assessment and Plan 1. Chronic kidney disease: CKD stage 3 approaching stage 4. Likely diabetic nephropathy. Non-nephrotic range proteinuria. Monitor renal function. 2. Hyperkalemia: Improved. 3. Chest pain. 4. DM type 2. 5. HTN: Increase Bumex. Low salt diet. Monitor BP. Compliance encouraged. Subjective Date of service: 02/08/18 Objective - Vital Signs Vital signs: Vital Signs - 12hr 02/08/18 02/08/18 02/08/18 00:11 00:13 08:00 Temperature 98.3 F Pulse Rate 72 72 67 Respiratory 16 Rate Blood Pressure 171/103 171/103 182/115 O2 Sat by Pulse 97 Oximetry 02/08/18 08:12 Temperature Pulse Rate Respiratory Rate Blood Pressure O2 Sat by Pulse 95 Oximetry - Lab 02/07/18 05:53 02/08/18 06:27 Most recent lab results Calcium 8.7 mg/dL (8.4-10.2) 02/08/18 06:27 Phosphorus 5.50 mg/dL (2.5-4.5) H 02/07/18 05:53 Urine Creatinine 50.5 mg/dL (0.1-20.0) H 02/07/18 15:19 Urine Sodium 111 mmol/L 02/07/18 15:19 Urine Total Protein 76 mg/dL (5-11.8) H 02/07/18 15:15
[2018-02-08] MEDS: HALFPRIN EC PO SCH (11:23)
[2018-02-08] MEDS ORDERED: APRESOLINE IV PRN (12:35)
[2018-02-08] MEDS: APRESOLINE PO SCH ×2 (13:13→21:52)
[2018-02-08] MEDS: LANOXIN PO SCH (17:41)
--- NOTE | 2018-02-08 18:15 | Progress Note ---
Assessment and Plan Assessment and plan: --Accelerated hypertension; continue current antihypertensives and when necessary medication --Non-ST elevation [place]; ischemia ruled out Negative stress test, continue current cardiac medications --Nonischemic cardiomyopathy; ejection fraction 30-35% in the past Echo during this admission 45-50% , continue current anti-failure medications, --Acute on chronic kidney injury 3; probably secondary to diabetic nephropathy worsening renal function,Gentle hydration, closely monitor his renal function, avoid nephrotoxins, Nephrology following --Elevated D dimers; VQ scan negative for PE Continue supportive care --Type 2 diabetes mellitus; Accu-Chek sliding scale coverage and ADA diet Insulin as needed, A1c 8.1, diabetic education if needed --Mild hyperkalemia; closely monitor potassium levels Nephrology following --Mild protein calorie malnutrition; hypoalbuminemia[albumin 3.5] Nutrition supplements and supportive care --DVT prophylaxis; Lovenox --Social issues; patient is homeless, case management setting up a skilled nursing placement Patient is medically stable for discharge When placement is completed Plan of care is reviewed with the patient History Interval history: Patient seen and examined medical records reviewed Patient feels slightly better, initially planning to discharge the patient home However had uncontrolled blood pressures An patient reports that he has no place to go Case management consult., Evaluating for skilled nursing placement Alert awake oriented 3 Vital signs reviewed Hospitalist Physical - Constitutional Vitals: Temp Pulse Resp BP Pulse Ox 98.1 F 68 15 145/100 97 02/08/18 15:51 02/08/18 18:13 02/08/18 15:51 02/08/18 18:13 02/08/18 15:51 General appearance: Present: no acute distress, well-nourished, obese (morbidly obese) - EENT Eyes: Present: PERRL, EOM intact - Neck Neck: Present: supple, normal ROM - Respiratory Respiratory effort: normal Respiratory: negative: rales, rhonchi, wheezing - Cardiovascular Rhythm: regular Heart Sounds: Present: S1 & S2 - Extremities Extremities: no ischemia, pulses intact, abnormal (AKA) - Abdominal General gastrointestinal: soft, non-tender, non-distended, normal bowel sounds - Integumentary Integumentary: Present: clear, warm - Psychiatric Psychiatric: appropriate mood/affect, cooperative - Neurologic Neurologic: CNII-XII intact, moves all extremities Results - Labs CBC & Chem 7: 02/07/18 05:53 02/08/18 06:27 Labs: Laboratory Last Values WBC 4.8 K/mm3 (4.5-11.0) 02/07/18 05:53 RBC 4.39 M/mm3 (3.65-5.03) 02/07/18 05:53 Hgb 11.5 gm/dl (11.8-15.2) L 02/07/18 05:53 Hct 36.3 % (35.5-45.6) 02/07/18 05:53 MCV 83 fl (84-94) L 02/07/18 05:53 MCH 26 pg (28-32) L 02/07/18 05:53 MCHC 32 % (32-34) 02/07/18 05:53 RDW 15.9 % (13.2-15.2) H 02/07/18 05:53 Plt Count 163 K/mm3 (140-440) 02/07/18 05:53 Lymph % (Auto) 35.2 % (13.4-35.0) H 02/07/18 05:53 [place] % (Auto) 10.1 % (0.0-7.3) H 02/07/18 05:53 Eos % (Auto) 4.3 % (0.0-4.3) 02/07/18 05:53 Baso % (Auto) 1.1 % (0.0-1.8) 02/07/18 05:53 Lymph # 1.7 K/mm3 (1.2-5.4) 02/07/18 05:53 [place] # 0.5 K/mm3 (0.0-0.8) 02/07/18 05:53 Eos # 0.2 K/mm3 (0.0-0.4) 02/07/18 05:53 Baso # 0.1 K/mm3 (0.0-0.1) 02/07/18 05:53 Seg Neutrophils % 49.3 % (40.0-70.0) 02/07/18 05:53 Seg Neutrophils # 2.4 K/mm3 (1.8-7.7) 02/07/18 05:53 D-Dimer 258.93 ng/mlDDU (0-234) H 02/05/18 17:11 Sodium 140 mmol/L (137-145) 02/08/18 06:27 Potassium 4.9 mmol/L (3.6-5.0) 02/08/18 06:27 Chloride 102.9 mmol/L (98-107) 02/08/18 06:27 Carbon Dioxide 25 mmol/L (22-30) 02/08/18 06:27 Anion Gap 17 mmol/L 02/08/18 06:27 BUN 32 mg/dL (9-20) H 02/08/18 06:27 Creatinine 2.4 mg/dL (0.8-1.5) H 02/08/18 06:27 Estimated GFR 35 ml/min 02/08/18 06:27 BUN/Creatinine Ratio 13 % 02/08/18 06:27 Glucose 134 mg/dL (75-100) H 02/08/18 06:27 POC Glucose 112 (70-105) H 02/08/18 17:50 Hemoglobin A1c 8.1 % (4-6) H 02/06/18 06:48 Calcium 8.7 mg/dL (8.4-10.2) 02/08/18 06:27 Phosphorus 5.50 mg/dL (2.5-4.5) H 02/07/18 05:53 Total Bilirubin 0.20 mg/dL (0.1-1.2) 02/07/18 05:53 AST 12 units/L (5-40) 02/07/18 05:53 ALT 7 units/L (7-56) 02/07/18 05:53 Alkaline Phosphatase 99 units/L (35-129) 02/07/18 05:53 Total Creatine Kinase 310 units/L (55-170) H 02/06/18 15:32 CK-MB (CK-2) 12.0 ng/mL (0.0-4.0) H 02/06/18 15:32 CK-MB (CK-2) Rel Index 3.8 (0-4) 02/06/18 15:32 Troponin T 0.284 ng/mL (0.00-0.029) H* 02/06/18 15:32 Total Protein 6.2 g/dL (6.3-8.2) L 02/07/18 05:53 Albumin 3.1 g/dL (3.9-5) L 02/07/18 05:53 Albumin/Globulin Ratio 1.0 % 02/07/18 05:53 Triglycerides 102 mg/dL (2-149) 02/05/18 17:11 Cholesterol 181 mg/dL (50-199) 02/05/18 17:11 LDL Cholesterol Direct 109 mg/dL (50-130) 02/05/18 17:11 HDL Cholesterol 69 mg/dL (40-59) H 02/05/18 17:11 Cholesterol/HDL Ratio 2.62 % 02/05/18 17:11 PTH Intact 227.6 pg/mL (15-65) H 02/07/18 05:53 Urine Color Straw (Yellow) 02/07/18 15:19 Urine Turbidity Clear (Clear) 02/07/18 15:19 Urine pH 5.0 (5.0-7.0) 02/07/18 15:19 Ur Specific [place] 1.009 (1.003-1.030) 02/07/18 15:19 Urine Protein 100 mg/dl mg/dL (Negative) 02/07/18 15:19 Urine Glucose (UA) 50 mg/dL (Negative) 02/07/18 15:19 Urine Ketones Neg mg/dL (Negative) 02/07/18 15:19 Urine Blood Sm (Negative) 02/07/18 15:19 Urine Nitrite Neg (Negative) 02/07/18 15:19 Urine Bilirubin Neg (Negative) 02/07/18 15:19 Urine Urobilinogen < 2.0 mg/dL (<2.0) 02/07/18 15:19 Ur Leukocyte Esterase Neg (Negative) 02/07/18 15:19 Urine WBC (Auto) 1.0 /HPF (0.0-6.0) 02/07/18 15:19 Urine RBC (Auto) 3.0 /HPF (0.0-6.0) 02/07/18 15:19 Hyaline Casts 3 /LPF 02/07/18 15:19 Urine Creatinine 50.5 mg/dL (0.1-20.0) H 02/07/18 15:19 Protein/Creatinin Ratio 1.53 02/07/18 15:15 Urine Sodium 111 mmol/L 02/07/18 15:19 Urine Total Protein 76 mg/dL (5-11.8) H 02/07/18 15:15 Digoxin 0.3 ng/mL (0.9-2.0) L 02/05/18 18:54
[2018-02-09] MEDS: APRESOLINE PO SCH (05:25)
[2018-02-09] MEDS: PERCOCET 5/325 PO PRN (07:53)
--- NOTE | 2018-02-09 08:19 | Progress Note ---
Assessment and Plan 1. Chronic kidney disease: CKD stage 3 approaching stage 4. Likely diabetic nephropathy. Non-nephrotic range proteinuria. Monitor renal function. 2. Hyperkalemia: Will stop Spironolactone. Kayexalate ordered. 3. Chest pain. 4. DM type 2. 5. HTN: Increase Hydralazine. Low salt diet. Monitor BP. Compliance encouraged. Subjective Date of service: 02/09/18 Interval history: Patient is feeling better. Objective - Vital Signs Vital signs: Vital Signs - 12hr 02/08/18 02/09/18 21:09 05:00 Temperature 98.4 F Pulse Rate 73 Respiratory 18 Rate Blood Pressure 143/101 [Left] O2 Sat by Pulse 99 98 Oximetry - General Appearance General appearance: well-developed, well-nourished, appears stated age, obese, other (no distress) EENT: ATNC, PERRL, mucous membranes moist, hearing intact, vision intact Neck: supple Respiratory: Present: Clear to Ascultation Cardiology: regular, S1S2, no murmurs Gastrointestinal: normoactive bowel sounds, no tenderness, obese Integumentary: no rash, warm and dry Neurologic: no focal deficit, no asterixis, alert and oriented x3 Musculoskeletal: other (right BKA, trace pedal edema) Psychiatric: mood/affect appropriate, cooperative - Lab 02/07/18 05:53 02/09/18 07:23 Most recent lab results Calcium 8.7 mg/dL (8.4-10.2) 02/08/18 06:27 Phosphorus 5.50 mg/dL (2.5-4.5) H 02/07/18 05:53 Urine Creatinine 50.5 mg/dL (0.1-20.0) H 02/07/18 15:19 Urine Sodium 111 mmol/L 02/07/18 15:19 Urine Total Protein 76 mg/dL (5-11.8) H 02/07/18 15:15
[2018-02-09 08:40] LABS: Calcium 8.6 mg/dL (8.4-10.2)
[2018-02-09 08:55] VITALS: BP 121/80
[2018-02-09] MEDS ORDERED: KIONEX PR ONE (09:00)
[2018-02-09] MEDS: HumaLOG SUB-Q SCH ×2 (09:15→11:30)
[2018-02-09] MEDS ORDERED: BUMEX PO SCH (10:00)
[2018-02-09] MEDS: PEPCID PO SCH (10:02)
[2018-02-09] MEDS: HALFPRIN EC PO SCH (10:02)
[2018-02-09] MEDS: COREG PO SCH (10:02)
[2018-02-09] MEDS: SODIUM CHLORIDE FLUSH SYRINGE 10 ML IV SCH (10:03)
[2018-02-09] MEDS ORDERED: APRESOLINE PO SCH (14:00)
--- NOTE | 2018-02-09 14:23 | Discharge Summary ---
Providers - Providers Date of Admission: 02/05/18 22:03 Date of discharge: 02/09/18 Attending physician: SAMINA ROMO 02/06/18 06:46 Consult to Physician [CONS] Routine Comment: Consulting Provider: HENRI HUDSON Physician Instructions: Reason For Exam: NEGAR/CKD 02/06/18 06:48 Consult to Physician [CONS] Routine Comment: Consulting Provider: LAVON REDDY Physician Instructions: Reason For Exam: Elevated troponin Primary care physician: [employer] Hospitalization Condition: Fair Disposition: DC/[place]-70 ANOTHER TYPE [facility] Time spent for discharge: 31 min Core Measure Documentation - Palliative Care Palliative Care/ Comfort Measures: Not Applicable - Core Measures Any of the following diagnoses?: none Exam - Constitutional Vitals: Temp Pulse Resp BP Pulse Ox 97.0 F L 76 22 121/80 97 02/09/18 08:14 02/09/18 08:14 02/09/18 08:14 02/09/18 08:14 02/09/18 10:00 General appearance: Present: no acute distress, well-nourished, obese (morbidly) - EENT Eyes: Present: PERRL, EOM intact - Neck Neck: Present: supple, normal ROM - Respiratory Respiratory effort: normal Respiratory: negative: rales, rhonchi, wheezing - Cardiovascular Rhythm: regular Heart Sounds: Present: S1 & S2 - Extremities Extremities: no ischemia, abnormal (s/p AKA) - Abdominal General gastrointestinal: Present: soft, non-tender, non-distended, normal bowel sounds - Integumentary Integumentary: Present: clear, warm - Musculoskeletal Musculoskeletal: strength equal bilaterally - Psychiatric Psychiatric: appropriate mood/affect, cooperative - Neurologic Neurologic: CNII-XII intact, moves all extremities Plan Activity: advance as tolerated Diet: low salt, diabetic Additional Instructions: Advised to comply with medications and diet Follow up with: PRIMARY CARE, [Primary Care Provider] - 3-5 Days JIMENA KONG DPM [Staff Physician] - 7 Days HENRI HUDSON MD [Staff Physician] - 7 Days Prescriptions: hydrALAZINE [Apresoline TAB] 50 mg PO Q8HR #90 tab
--- NOTE | 2018-02-10 14:08 | Vascular Lab Report ---
CAROTID DUPLEX STUDY: RIGHT PSVEDV CCA PROX:9517 CCA DIST:7624 ICA PROX:7029 ICA MID:6636 ICA DIST:6735 ECA: 78 VERT: 41 19 LEFT PSVEDV CCA PROX:[id number] CCA DIST:7019 ICA PROX:6928 ICA MID:6225 ICA DIST:5629 ECA: 65 VERT: 55 26 REASON FOR EXAM: Stroke. COMMENTS ON THE RIGHT: Doppler frequency analysis is consistent with 16 to 49 percent diameter reduction of the internal carotid artery. A small amount of plaque is seen. The common carotid artery is patent. The external carotid artery is patent. The vertebral artery has antegrade flow. COMMENTS ON THE LEFT: Doppler frequency analysis is consistent with 16 to 49 percent diameter reduction of the internal carotid artery. A small amount of plaque is seen. The common carotid artery is patent. The external carotid artery is patent. The vertebral artery has antegrade flow. IMPRESSION: Less than 50% diameter reduction in the internal carotid arteries bilaterally. Consider repeat carotid duplex in 12 months because of carotid bulb plaque.
== END 2018-02-09 15:30 | disposition other institution (70) | DRG 683 ==
LOC: ED 16:12 → 4A 22:03 → 3A 02-07 20:05
PROVIDERS: ADMIT Internal Medicine; ATTEND Internal Medicine
DX: N17.9 Acute kidney failure, unspecified (principal); E44.1 Mild protein-calorie malnutrition; I42.9 Cardiomyopathy, unspecified; I13.0 Hypertensive heart and chronic kidney disease with heart failure and stage 1 through stage 4 chronic kidney disease, or unspecified chronic kidney disease; Z68.41 Body mass index [BMI] 40.0-44.9, adult; R07.89 Other chest pain; I50.9 Heart failure, unspecified; E11.22 Type 2 diabetes mellitus with diabetic chronic kidney disease; N18.3 Chronic kidney disease, stage 3 (moderate); G43.909 Migraine, unspecified, not intractable, without status migrainosus; E78.5 Hyperlipidemia, unspecified; E87.5 Hyperkalemia; E66.01 Morbid (severe) obesity due to excess calories; I25.10 Atherosclerotic heart disease of native coronary artery without angina pectoris; Z89.511 Acquired absence of right leg below knee; Z87.891 Personal history of nicotine dependence; Z79.82 Long term (current) use of aspirin; I25.2 Old myocardial infarction; Z79.84 Long term (current) use of oral hypoglycemic drugs; Z79.899 Other long term (current) drug therapy; Z88.8 Allergy status to other drugs, medicaments and biological substances
CPT/HCPCS: 36415; 71046; 76770; 78452; 78582; 80048; 80053; 80061; 80162; 81001; 82550; 82553; 82570; 82962; 83036; 83970; 84100; 84132; 84156; 84300; 84484; 85025; 85379; 93005; 93010; 93017; 93306; 93880; 96374; 96375; 99285; A9270-GY; A9502; A9540; A9558; J0360; J1815; J2270; J2405; J2785

== ENCOUNTER 2018-11-22 10:13 | Outpatient (CLI) | payer MEDICAID ==
[2018-11-22 10:50] LABS: Bilirubin,Urine NEG (Negative); Blood,Urine SM (Negative); Color,Urine Yellow (Yellow); Hyaline Casts,Urine 1 /LPF; Urobilinogen,Urine < 2.0 mg/dL (<2.0); WBC,Urine < 1.0 /HPF (0.0-6.0)
[2018-11-22 10:51] LABS: Basophils # (Auto) 0.1 K/mm3 (0.0-0.1); Basophils % (Auto) 1.4 % (0.0-1.8); Eosinophils # (Auto) 0.2 K/mm3 (0.0-0.4); Eosinophils % (Auto) 3.8 % (0.0-4.3); Hematocrit 32.1 % (35.5-45.6); Hemoglobin 10.4 gm/dl (11.8-15.2); Lymphocytes # (Auto) 1.3 K/mm3 (1.2-5.4); Lymphocytes % (Auto) 21.2 % (13.4-35.0); Mean Corpuscular HGB Conc 32 % (32-34); Mean Corpuscular Volume 83 fl (84-94); Monocytes # (Auto) 0.6 K/mm3 (0.0-0.8); Monocytes % (Auto) 9.3 % (0.0-7.3); Platelet Count 208 K/mm3 (140-440); Protein,Urine >500 mg/dL (Negative); Red Blood Count 3.88 M/mm3 (3.65-5.03); Red Cell Distribution Width 16.3 % (13.2-15.2)
[2018-11-22 11:00] LABS: Albumin 3.7 g/dL (3.9-5); Calcium 8.7 mg/dL (8.4-10.2)
== END 2018-11-22 10:14 | disposition home or self-care (01) ==
LOC: LAB 10:13
PROVIDERS: ATTEND Internal Medicine Nephrology
DX: I13.0 Hypertensive heart and chronic kidney disease with heart failure and stage 1 through stage 4 chronic kidney disease, or unspecified chronic kidney disease (principal); I50.9 Heart failure, unspecified; N18.3 Chronic kidney disease, stage 3 (moderate); E78.00 Pure hypercholesterolemia, unspecified; J45.909 Unspecified asthma, uncomplicated; E66.9 Obesity, unspecified
CPT/HCPCS: 36415; 80048; 81001; 82040; 84100; 85025

== ENCOUNTER 2019-03-22 11:23 | Outpatient (CLI) | payer MEDICAID ==
[2019-03-22 12:14] LABS: Albumin 3.7 g/dL (3.9-5); Calcium 8.7 mg/dL (8.4-10.2)
== END 2019-03-22 11:24 | disposition home or self-care (01) ==
LOC: LAB 11:23
PROVIDERS: ATTEND Internal Medicine Nephrology
DX: I13.0 Hypertensive heart and chronic kidney disease with heart failure and stage 1 through stage 4 chronic kidney disease, or unspecified chronic kidney disease (principal); I50.9 Heart failure, unspecified; E11.22 Type 2 diabetes mellitus with diabetic chronic kidney disease; N18.3 Chronic kidney disease, stage 3 (moderate); E78.00 Pure hypercholesterolemia, unspecified; J45.909 Unspecified asthma, uncomplicated; E66.9 Obesity, unspecified
CPT/HCPCS: 36415; 80048; 82040; 84100

== ENCOUNTER 2019-10-24 10:06 | Outpatient (CLI) | payer MEDICAID ==
[2019-10-24 10:25] LABS: Basophils % (Auto) 0.3 % (0.0-1.8); Eosinophils # (Auto) 0.2 K/mm3 (0.0-0.4); Eosinophils % (Auto) 3.3 % (0.0-4.3); Hematocrit 35.3 % (35.5-45.6); Hemoglobin 11.5 gm/dl (11.8-15.2); Lymphocytes # (Auto) 1.1 K/mm3 (1.2-5.4); Lymphocytes % (Auto) 19.3 % (13.4-35.0); Mean Corpuscular HGB Conc 33 % (32-34); Mean Corpuscular Volume 85 fl (84-94); Monocytes # (Auto) 0.5 K/mm3 (0.0-0.8); Monocytes % (Auto) 7.9 % (0.0-7.3); Platelet Count 154 K/mm3 (140-440); Red Blood Count 4.15 M/mm3 (3.65-5.03); Red Cell Distribution Width 15.3 % (13.2-15.2)
[2019-10-24 10:47] LABS: Albumin 3.5 g/dL (3.9-5); Calcium 8.7 mg/dL (8.4-10.2)
== END 2019-10-24 10:07 | disposition home or self-care (01) ==
LOC: LAB 10:06
PROVIDERS: ATTEND Internal Medicine Nephrology
DX: N18.3 Chronic kidney disease, stage 3 (moderate) (principal)
CPT/HCPCS: 36415; 80048; 82040; 84100; 85025